=== PATIENT | male | born 1965 | race Caucasian/White ===

== ENCOUNTER → 2018-12-21 | Outpatient (CLI) | payer OTHER ==
[~2018-12-21] MED LIST: IV NORMAL SALINE 1000ML BAG 1,000 ML ONE; REGADENOSON 0.4 MG/5 ML DISP.SYRIN. IV ONE
--- NOTE | 2018-12-21 12:16 | PCVCIMAG ---
APPROVED REPORT Study performed: 12/21/2018 08:36:34 EXAM: Comprehensive 2D, Doppler, and color-flow Echocardiogram Patient Location: Echo lab Status: routine BSA: 1.97 HR: 64 bpmBP: 128/84 mmHg Rhythm: NSR Other Information Study Quality: Adequate Risk Factors: Cardiac Risk Factors: Hyperlipidemia Indications Dyspnea Chest Pain 2D Dimensions IVSd: 10.95 (7-11mm) LVDd: 46.29 mm PWd: 10.59 (7-11mm)Ascending Ao: 33.60 (22-36mm) LVDs: 34.82 (25-40mm) Left Atrium: 37.72 (27-40mm) Aortic Root: 33.28 mm LV Single Plane 4CH: 51.80 % LV Single Plane 2CH: 65.52 % Biplane EF: 59.5 % Volumes Left Atrial Volume (Systole) Single Plane 4CH: 44.26 mLSingle Plane 2CH: 61.36 mL LA ESV Index: 27.00 mL/m2 Aortic Valve AoV Peak Bryan.: 1.03 m/s AO Peak Gr.: 4.25 mmHgLVOT Max P.06 mmHg LVOT Max V: 0.87 m/s Mitral Valve E/A Ratio: 1.4 MV Decel. Time: 195.21 ms MV E Max Bryan.: 0.65 m/s MV A Bryan.: 0.46 m/s IVRT: 110.73 ms Pulmonary Valve PV Peak Bryan.: 0.73 m/sPV Peak Gr.: 2.11 mmHg Pulmonary Vein P Vein S: 0.34 m/sP Vein A: 0.31 m/s P Vein D: 0.47 m/sP Vein A Dur.: 110.7 msec P Vein S/D Ratio: 0.72 Tricuspid Valve TR Peak Bryan.: 2.55 m/s TR Peak Gr.: 26.07 mmHg Left Ventricle The left ventricle is normal size. There is normal LV segmental wall motion. There is normal left ventricular wall thickness. Left ventricular systolic function is normal. The left ventricular ejection fraction is within the normal range. LVEF is 55-60%. Grade II - pseudonormal filling dynamics. Right Ventricle The right ventricle is normal size. The right ventricular systolic function is normal. Atria The left atrium size is normal. The right atrium size is normal. Aortic Valve The aortic valve is normal in structure. No aortic regurgitation is present. There is no aortic valvular stenosis. Mitral Valve The mitral valve is normal in structure. Trace mitral regurgitation. No evidence of mitral valve stenosis. Tricuspid Valve The tricuspid valve is normal in structure. Mild tricuspid regurgitation with PAP of 31 mmHg. Pulmonic Valve The pulmonary valve is normal in structure. There is no pulmonic valvular regurgitation. Great Vessels The aortic root is normal in size. IVC is normal in size and collapses >50% with inspiration. Pericardium There is no pericardial effusion. There is no pleural effusion. <Conclusion> The left ventricle is normal size. LVEF is 55-60%. The aortic valve is normal in structure. The mitral valve is normal in structure. Trace mitral regurgitation. The tricuspid valve is normal in structure. Mild tricuspid regurgitation with PAP of 31 mmHg. The pulmonary valve is normal in structure. There is no pericardial effusion. There is no pleural effusion.
--- NOTE | 2018-12-22 09:52 | PCVCIMAG ---
APPROVED REPORT Imaging Protocol: Rest Tc-99m/Stress Tc-99m 1 day Study performed: 12/21/2018 09:28:37 Indication: Chest pain, Dyspnea Patient Location: Out-Patient Stress Nurse: Carla Garcia RN [place] Tech:Darlene NeumannTHOMAS puriMT Ht: 5 ft 6 in Wt: 195 lbs BSA: 1.98 m2 HR: 60 bpm BP: 113/74 mmHg BMI: 31.47 Rhythm: Sinus Rhythm Medical History Medical History: Hyperlipidemia Medications: Wellbutrin, Fenofibrate Allergies: Doxycycline Cardiac Risk Factors: Age Pretest Chest Pain Characteristics: No chest pain Exercise History: Physically active Resting Data Rest SPECT myocardial perfusion imaging was performed in supine position 45 minutes following the intravenous injection of 11.2 mCi of Tc-99m Sestamibi. Time of rest injection: 914 Date: 12/21/2018 Administration Route: IV Administration Site: Right AC Pharmacologic Stress Pharmacologic stress test was performed by injecting Regadenoson 0.4 mg IV push over 10-15 seconds immediately followed by the intravenous injection of 33.6 mCi of Tc-99m Sestamibi. Time of stress injection: 0 Date: 12/21/2018 Administration Route: IV Administration Site: Right AC Gated Stress SPECT was performed 45 minutes after stress injection. The images were gated to evaluate regional wall motion and calculate left ventricular ejection fraction. Stress Test Details Stress Test: Pharmacologic stress testing performed using 0.4 mg of regadenoson per 5 mL given IV over 10 seconds. Reason for pharmacologic stress test: physical limitation. HRMax Heart Rate (APMHR): 167 bpm Resting HR: 60 bpmTarget HR (85% APMHR): 141 bpm Max HR Achieved: 93 bpm % of APMHR: 55 Recovery HR: 80 bpm BP Resting BP: 113/74 mmHg Max BP: 125/74 mmHg Recovery BP: 111/71 mmHg ECG Resting ECG: Sinus Rhythm Stress ECG: Sinus Rhythm Arrhythmia: None Recovery ECG: Sinus Rhythm Clinical Reason for Termination: Completed protocol Stress Symptoms: Dyspnea, Chest pressure Exercise duration: 0 min 55 sec Symptoms resolved during recovery. Nurse Comments Chest pain 10/25 this am. Vagel Response to IV start (pale, diaphoretic, nauseated, CP 10/25). BP 77/48; HR 44. IV fluids given (250 cc bolus). BP 107/ 60 HR - 60. Feeling much better. This was all prior to testing. Stress ECG Conclusion 1. adequate response to iv lexiscan 2. inadequate heart rate for ECG diagnosis 3. subjectively abnormal with reproduction of symptoms exactly Study Data Post stress, the left ventricular ejection was 75%.. SSS: 0 SRS: 1 SDS: 0 TID = 1.30. Perfusion There is a large area of severely reduced uptake in the entire segment of the inferior wall which is seen on the stress images as well as the resting images. This area thickens and moves normally and is most consistent with attenuation artifact. Wall Motion Normal left ventricular wall motion. Nuclear Conclusion ECG Findings: non-diagnostic Clinical Findings: positive for ischemia Nuclear Findings: negative for ischemia Exercise Capacity: not assessed Left Ventricular Function: normal 1. Intermediate risk study based on a fixed inferior wall defect consistent with attenuation artifact although may obscure ischemiabut with reproduction of typical symptoms. 2. post stress LVEF 75% <Conclusion> 1. adequate response to iv lexiscan 2. inadequate heart rate for ECG diagnosis 3. subjectively abnormal with reproduction of symptoms exactly
== END | disposition home or self-care (01) ==
LOC: PCVCIMAG 09:23
PROVIDERS: ATTEND Internal Medicine
DX: I07.1 Rheumatic tricuspid insufficiency (principal); R07.9 Chest pain, unspecified; E78.5 Hyperlipidemia, unspecified; R06.09 Other forms of dyspnea
CPT/HCPCS: 78452; 93017; 93306; A9500; J2785; J7030